=== PATIENT | male | born 1950 | race Caucasian/White ===

== ENCOUNTER 2017-10-15 13:50 | Emergency (ER) | payer MEDICARE ==
[2017-10-15 14:58] LABS: BASOPHILS % 0.5 (0.0-1.5); EOSINOPHILS % 4.8 % (0.0-6.8); MEAN CORPUSCULAR HEMOGLOBIN 32.1 pg (28.0-34.0); MEAN CORPUSCULAR VOLUME 94.2 fl (80.0-100.0); MONOCYTES % 6.5 % (0.0-11.0); NEUTROPHILS # 4.8 # k/uL (1.4-7.7)
[2017-10-15] MEDS: 0.9 % SODIUM CHLORIDE 1,000 ML IV ONE (15:00)
--- NOTE | 2017-10-15 15:01 | ED Physician Documentation ---
General Adult - HISTORIAN Historian: patient - HPI Stated Complaint: LLQ pain Chief Complaint: Abdominal Pain Additional Information: Sharp LLQ pain be4gan 2-3 days ago. Completely goes away if he is lying on his back. Otherwise is constant. He has had left low back pain for 3 weeks, and has been taking 16 Advil daily for this. Also seeing chiropractor. Last normal bowel movement yesterday. No HX kidney stones. Slept in the car last night and was fine until he stood up - pain returned. Denies unusual physical activity. Had similar pain many years ago when he had stomach ulcer after taking large doses of Advil. - ROS CONST: denies: fever - PAST HX Past History: other (above) Surgeries/Procedures: cholecystectomy Allergies/Adverse Reactions: Allergies Allergy/AdvReac Type Severity Reaction Status Date / Time No Known Allergies Allergy Verified 10/15/17 14:17 Home Medications: Ambulatory Orders Medication Instructions Recorded Amoxicillin/Potassium Clav 1 each PO Q8H #30 tablet 10/15/17 [Augmentin 500-125 Tablet] - SOCIAL HX Smoking History: non-smoker Alcohol Use: occasionally - FAMILY HX Family History: No - VITAL SIGNS Vital Signs: Vital Signs Temp Pulse Resp BP Pulse Ox 63 16 147/90 98 10/15/17 13:51 10/15/17 13:51 10/15/17 13:51 10/15/17 13:51 - REVIEWED ASSESSMENTS Nursing Assessment Reviewed: Yes Vitals Reviewed: Yes Progress - Progress Progress: Patient Study Name: PENNY TAYLOR Date: Oct 15, 2017 2:58:16 PM CDT Modality Type: CT\SR Gender: M Description: CT ABD PELVIS W/O CO : 54 Institution: [facility] Physician: OSEI HANKINS - JAZMYN Examination: CT Abdomen/pelvis History: CT A/P W/O, LLQ PAIN SINCE YESTERDAY, PT STATES HX OF GALLBLADDER AND APPENDIX SURGERIES (Hx) Comparison exams: None available Technique: CT Abdomen/pelvis without IV protocol. Findings: Liver, spleen, adrenals, pancreas, and kidneys are without gross irregularity given exam technique. Surgical clips gallbladder fossa. No suspicious renal calcifications. Ureters are nondilated in their course through the abdomen and pelvis. No central calcifications. Bladder margin within normal limits. Pelvic phleboliths. Abdominal aorta without aneurysm. Minimal peripheral atherosclerotic disease. Cardiac silhouette is not enlarged. No pericardial effusion. Bowel unopacified limiting evaluation. No abnormal small bowel dilation. Stool within the large bowel limiting sensitivity. No mesenteric inflammatory changes or free fluid. Appendix not visualized. Sigmoid diverticula. Sigmoid colon mucosal thickening. Osseous structures demonstrate mild degenerative spurring. Lung bases without infiltrate. No effusion. Impression: No acute upper abdominal organ inflammatory process. Sigmoid diverticula with mucosal thickening - diverticulitis. No evidence for abscess. No suspicious renal calcifications or abnormal ureteric dilation. No lung base consolidation or effusion. 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 Metronidazole did not seem advisable. ED Results Lab/Radiology - Orders Orders: ED Orders Category Date Time Status Place IV Lock 1T Care 10/15/17 14:[address] ABD & PELVIS W/O CON Stat Exams 10/15/17 Ordered CBC/PLATELET/DIFF Routine Lab 10/15/17 14:55 Received CMP Routine Lab 10/15/17 14:55 Received URINALYSIS Routine Lab 10/15/17 Ordered 0.9 % Sodium Chloride [Normal Saline] 1,000 ml Med 10/15/17 14:50 Discontinued IV .STK-MED General Adult Physical Exam - PHYSICAL EXAM GENERAL APPEARANCE: no distress (reading a book) EENT: eye inspection normal, ENT inspection normal NECK: normal inspection, supple RESPIRATORY: no resp distress, breath sounds normal CVS: reg rate & rhythm, heart sounds normal ABDOMEN: soft, normal bowel sounds, tenderness (point tenderness LLQ) BACK: normal inspection SKIN: warm/dry, normal color EXTREMITIES: no evidence of injury NEURO: CN's nml as tested, motor nml, sensation nml, cognition normal Discharge Clincal Impression: Diverticulitis Referrals: Primary Doctor,No [Primary Care Provider] - 2 Days Condition: Good Disposition: 01 HOME, SELF-CARE Decision to Admit: NO Decision Time: 15:40
[2017-10-15 15:14] LABS: eGFR (Non-African) > 60
[2017-10-15 16:29] VITALS: BP 132/84
--- NOTE | 2017-10-15 18:58 | Diagnostic Imaging Report ---
OSEI HANKINS [facility] [address] [place], [place]. [address] Report Submission Date: Oct 15, 2017 3:29:36 PM CDT Patient Study Name: PENNY TAYLOR Date: Oct 15, 2017 2:58:16 PM CDT Modality Type: CT\SR Gender: M Description: CT ABD PELVIS W/O CO : 54 Institution: [facility] Physician: OSEI HANKINS Examination: CT Abdomen/pelvis History: CT A/P W/O, LLQ PAIN SINCE YESTERDAY, PT STATES HX OF GALLBLADDER AND APPENDIX SURGERIES (Hx) Comparison exams: None available Technique: CT Abdomen/pelvis without IV protocol. Findings: Liver, spleen, adrenals, pancreas, and kidneys are without gross irregularity given exam technique. Surgical clips gallbladder fossa. No suspicious renal calcifications. Ureters are nondilated in their course through the abdomen and pelvis. No central calcifications. Bladder margin within normal limits. Pelvic phleboliths. Abdominal aorta without aneurysm. Minimal peripheral atherosclerotic disease. Cardiac silhouette is not enlarged. No pericardial effusion. Bowel unopacified limiting evaluation. No abnormal small bowel dilation. Stool within the large bowel limiting sensitivity. No mesenteric inflammatory changes or free fluid. Appendix not visualized. Sigmoid diverticula. Sigmoid colon mucosal thickening. Osseous structures demonstrate mild degenerative spurring. Lung bases without infiltrate. No effusion. Impression: No acute upper abdominal organ inflammatory process. Sigmoid diverticula with mucosal thickening - diverticulitis. No evidence for abscess. No suspicious renal calcifications or abnormal ureteric dilation. No lung base consolidation or effusion. Electronically signed on Oct 15, 2017 3:29:36 PM CDT by: Artem HERNANDEZ
[2017-10-16 07:18] LABS: APPEARANCE,URINE CLEAR (CLEAR); COLOR,URINE YELLOW (YELLOW); OCCULT BLOOD,URINE NEGATIVE (NEGATIVE); UROBILINOGEN URINE 0.2 Eu (0.2-1.0)
== END 2017-10-15 16:00 | disposition home or self-care (01) ==
LOC: ED 13:50
DX: K57.90 Diverticulosis of intestine, part unspecified, without perforation or abscess without bleeding (principal)
CPT/HCPCS: 74176; 80053; 81002; 85025; J7030; 96365; 99284; S1016